=== PATIENT | female | born 1975 | race Caucasian/White ===

== ENCOUNTER 2018-02-19 07:58 | Day surgery (SDC) | payer OTHER ==
[2018-02-17 14:45] VITALS: BMI 29.9
[~2018-02-19 07:58] MED LIST: LACTATED RINGERS 1,000 ML IV SCH; LIDOCAINE 1% 20 ML VIAL (10MG/ML) FOR IV START INTRADERMA PRN
[2018-02-19 08:21] VITALS: RESP 16; TEMP 98.3
[2018-02-19] MEDS ORDERED: FAMOTIDINE 20 MG/2 ML VIAL IV ONE (08:42)
[2018-02-19] MEDS ORDERED: PROPOFOL 10 MG/ML 20 ML VIAL IV ONE (09:48)
--- NOTE | 2018-02-19 10:04 | P.PCN ---
Date of Procedure: 02/19/18 Procedure(s) Performed: BRIEF HISTORY: Patient is a 43-year-old, pleasant, white female, scheduled for an upper endoscopy as a part of evaluation of abdominal bloating, long-standing history of gastroesophageal reflux disease. She was diagnosed with questionable celiac disease about 15 years ago at [facility] and subsequently a few months later was told she does not have any celiac disease. Since then she has been on a regular diet. Lately her abdominal bloating has been progressively getting worse. She is scheduled for repeat upper endoscopy to evaluate this further.. PROCEDURE PERFORMED: Esophagogastroduodenoscopy with biopsy. PREOPERATIVE DIAGNOSIS: Abdominal bloating/GERD/questionable history of celiac disease diagnosed had mild gastritis and biopsies were done from this area. The 15 years. IV sedation per anesthesia. PROCEDURE: After informed consent was obtained, the patient was brought into the endoscopy unit. IV sedation was administered by Anesthesia under continuous monitoring. Initially the Olympus GIF-140 video endoscope was inserted into the mouth. Esophagus intubated without any difficulty. It was gradually advanced into the stomach and duodenum and carefully examined. The bulb and the second part of the duodenum appeared normal. Multiple biopsies were done from the duodenum to rule out celiac disease. The scope at this time was withdrawn to the stomach, adequately insufflated with air, and upon careful examination, mucosa of the antrum, body, cardia and the fundus appeared normal. The scope was then withdrawn into the esophagus. The GE junction was located at 39 cm from the incisors. The esophagus appeared normal. There were no erosions or ulcerations seen and the patient tolerated the procedure well. IMPRESSION: 1. Normal-appearing duodenum status post multiple biopsies to rule out celiac disease. 2. Mild antral gastritis. RECOMMENDATIONS: The findings of this examination were discussed with the patient as well as a family. She was advised to follow with the biopsy. She' ll be seen in office in 2-3 weeks.
[2018-02-19 10:34] VITALS: BP 126/85; PULSE 71
== END 2018-02-19 10:48 | disposition home or self-care (01) ==
LOC: ORWHC2ENDO 07:58
PROVIDERS: ATTEND Internal Medicine Gastroenterology
DX: K29.50 Unspecified chronic gastritis without bleeding (principal); K21.9 Gastro-esophageal reflux disease without esophagitis; I10 Essential (primary) hypertension; M79.7 Fibromyalgia; I73.00 Raynaud's syndrome without gangrene; Z88.1 Allergy status to other antibiotic agents; Z79.891 Long term (current) use of opiate analgesic; Z79.899 Other long term (current) drug therapy
CPT/HCPCS: 81025; 88305; 88342; 43239; J2704

== ENCOUNTER → 2019-08-29 | Outpatient (CLI) | payer BC ==
[2019-09-01 13:59] LABS: Cat Epith & Dander IgE <0.10 kU/L (<0.10); Cat Epith & Dander IgE Class CLASS 0; Cockroach IgE <0.10 kU/L (<0.10); Com. Pigweed IgE <0.10 kU/L (<0.10); Com. Pigweed IgE Class CLASS 0; Dermato. Pteronyssinus Class CLASS 0; Dermato. Pteronyssinus IgE <0.10 kU/L (<0.10); Dermato. farinae IgE <0.10 kU/L (<0.10); Dermato. farinae IgE Class CLASS 0; Dog Dander IgE <0.10 kU/L (<0.10); English Plantain IgE Class CLASS 0; Johnson Grass IgE Class CLASS 0; Lamb's Quarter IgE <0.10 kU/L (<0.10); Lamb's Quarter IgE Class CLASS 0; Timothy Grass IgE <0.10 kU/L (<0.10)
[2019-09-07 11:30] LABS: Corn IgG 5.3 mcg/mL (< 2.0); Cow's Milk IgG 33.3 mcg/mL (< 2.0); Peanut IgG 2.5 mcg/mL (< 2.0); Potato IgG <2.0 mcg/mL (< 2.0); Soybean IgG <2.0 mcg/mL (< 2.0); Tomato IgG 2.5 mcg/mL (< 2.0)
[2019-09-09 08:31] LABS: Alternaria alternata IgE QNS
[2019-09-09 08:32] LABS: Asperg. fumagatus IgE QNS; Birch(Com.Silvr) IgE QNS; Clad herbarum IgE QNS; Cottonwood IgE QNS; Egg White IgE QNS; Hazelnut IgE QNS; Kiwi IgE QNS
[2019-09-09 08:33] LABS: Aureo. pullulans IgE QNS; Epicoccum purpurascens IgE QNS; Maple (Box Elder) IgE QNS; Mucor racemosus IgE QNS; Oak IgE QNS; Peanut IgE QNS; Potato IgE QNS; Rhizopus nigricans IgE QNS; S.rostrata/Helminth IgE QNS; Soybean IgE QNS; Sycamore(Mpl.Lf) IgE QNS; Walnut Tree IgE QNS
== END | disposition home or self-care (01) ==
LOC: LABWHC1 17:23
PROVIDERS: ATTEND Otolaryngology
DX: J30.89 Other allergic rhinitis (principal); L50.0 Allergic urticaria; B44.89 Other forms of aspergillosis
CPT/HCPCS: 36415; 86001; 86003

== ENCOUNTER → 2020-02-21 | Outpatient (CLI) | payer BC | END | disposition home or self-care (01) | LOC: LABWHC1 15:06 | PROVIDERS: ATTEND Physical Medicine & Rehabilitation | DX: Z11.59 Encounter for screening for other viral diseases (principal) ==

== ENCOUNTER 2020-07-30 10:31 | Emergency (ER) | payer BC ==
[2020-07-30 10:36] VITALS: BP 151/88; PULSE 88; RESP 18; TEMP 98.9
--- NOTE | 2020-07-30 12:17 | XR ---
EXAMINATION TYPE: XR chest 2V DATE OF EXAM: 07/30/2020 COMPARISON: NONE HISTORY: Cough TECHNIQUE: Frontal and lateral views of the chest are obtained. FINDINGS: There is no focal air space opacity, pleural effusion, or pneumothorax seen. The cardiac silhouette size is within normal limits. The osseous structures are intact. IMPRESSION: No acute cardiopulmonary process.
--- NOTE | 2020-07-30 12:23 | ED ---
URI HPI - General Chief Complaint: Upper Respiratory Infection Stated Complaint: Headache/nausea/sore throat Time Seen by Provider: 07/30/20 11:15 Source: family Mode of arrival: ambulatory Limitations: no limitations - History of Present Illness Initial Comments: Patient is a 45-year-old female presenting to the emergency department with multiple complaints including a sore throat, cough, headache, nausea for the past few days. She states her symptoms started at nausea on and off for the last few days but she does have a history of lupus and states this is normal for her. She also had a few days of a headache and some dizzy spells which also states she states is normal for her. Then yesterday she started developing a cough with a sore throat. She denies being short of breath, no chest pains. She states she does feel a little bit of burning in her throat but no chest pain. She denies history of asthma or COPD. She is not a smoker. She states she had a low-grade temperature yesterday, none today. She denies any vomiting, diarrhea. She denies any urinary complaints. She is no further complaints at this time. Upon arrival to the ER her vital signs stable. - Related Data Home Medications Medication Instructions Recorded Confirmed Cyclobenzaprine [Flexeril] 5 mg PO HS 08/13/14 02/19/18 Esomeprazole Magnesium [NexIUM] 40 mg PO BID 08/13/14 02/19/18 Hydrocodone/Acetaminophen [[place] 1 tab PO Q6HR PRN 08/13/14 02/19/18 5-325] Hydroxychloroquine Sulfate 200 mg PO BID 08/13/14 02/19/18 [Plaquenil] Lisinopril [Prinivil] 5 mg PO DAILY 04/24/16 02/19/18 Ranitidine HCl [Zantac] 300 mg PO HS 04/24/16 02/19/18 Blisovi 02/19/18 Meloxicam [Mobic] 15 mg PO DAILY 02/19/18 02/19/18 Previous Rx's Medication Instructions Recorded Albuterol Inhaler [Ventolin Hfa 1 puff INHALATION RT-QID PRN #1 07/30/20 Inhaler] puff Allergies Allergy/AdvReac Type Severity Reaction Status Date / Time azithromycin [From Zithromax] Allergy Unknown Verified 07/30/20 10:36 gold Au 198 [gold Au-198] Allergy Rash/Hives Verified 07/30/20 10:36 Review of Systems ROS Statement: Those systems with pertinent positive or pertinent negative responses have been documented in the HPI. ROS Other: All systems not noted in ROS Statement are negative. Past Medical History Past Medical History: Fibromyalgia, Hypertension, Osteoarthritis (OA) Additional Past Medical History / Comment(s): kidney stones, lupus, IGA deficiency, RAYNAULDS,SLIGHT HEART MURMUR, , NEPHROTIC SYNDROME CHILD, HX UL CERS History of Any Multi-Drug Resistant Organisms: None Reported Past Surgical History: Tonsillectomy Additional Past Surgical History / Comment(s): lasix eye surgery,, CONE BX OF CERVIX, WISDOM TEETH SURGERY, EPIDURAL INJECTIONS Past Anesthesia/Blood Transfusion Reactions: No Reported Reaction Past Psychological History: No Psychological Hx Reported Smoking Status: Never smoker Past Alcohol Use History: Occasional Past Drug Use History: None Reported - Past Family History Mother Family Medical History: Cancer Additional Family Medical History / Comment(s): BREAST CANCER Father Family Medical History: Cancer Additional Family Medical History / Comment(s): SKIN CANCER General Exam - General Exam Comments Initial Comments: GENERAL: Patient is well-developed and well-nourished. Patient is nontoxic and in no acute distress. HEAD: Atraumatic, normocephalic. EYES: Pupils equal round and reactive to light, extraocular movements intact, sclera anicteric, conjunctiva are normal. Eyelids were unremarkable. ENT: TMs normal, nares patent, oropharynx clear without exudates. Moist mucous membranes. NECK: Normal range of motion, supple without lymphadenopathy or JVD. LUNGS: Unlabored respirations. Breath sounds clear to auscultation bilaterally and equal. No wheezes rales or rhonchi. HEART: Regular rate and rhythm without murmurs, rubs or gallops. ABDOMEN: Soft, nontender, normoactive bowel sounds. No guarding, no rebound. No masses appreciated. : Deferred MUSCULOSKELETAL: Normal extremities with adequate strength and normal range of motion, no pitting or edema. No clubbing or cyanosis. NEUROLOGICAL: Patient is alert and oriented x 3. Motor and sensory are also intact. Cranial nerves II through XII grossly intact. Symmetrical smile. Normal speech, normal gait. PSYCH: Normal mood, normal affect. SKIN: Warm, Dry, normal turgor, no rashes or lesions noted. Limitations: no limitations Course Vital Signs 07/30/20 10:33 Temperature 98.9 F Pulse Rate 88 Respiratory 18 Rate Blood Pressure 151/88 O2 Sat by Pulse 99 Oximetry Medical Decision Making - Medical Decision Making Patient is a 45-year-old female here with multiple complaints including intermittent nausea, headache, sore throat, cough that started mostly yesterday. Her vitals are stable here. Her chest x-ray shows no acute process. Influenza is negative, Covid test is positive. I discussed these findings with the patient. I will send her home with an albuterol inhaler to use for occasional shortness of breath, cough. She is stable for discharge. Return parameters were discussed with the patient she verbalized understanding. She needs to self quaratine for 10 days. Work note given. Case discussed with Dr. Drummond. - Lab Data Lab Results 07/30/20 07/30/20 Range/Units 11:22 11:36 Coronavirus (PCR) Detected A (Not Detectd) Influenza Type A RNA Not Detected (Not Detectd) Influenza Type B (PCR) Not Detected (Not Detectd) Disposition Clinical Impression: COVID-19 virus infection, Viral infection Disposition: HOME SELF-CARE Condition: Stable Instructions (If sedation given, give patient instructions): Upper Respiratory Infection (ED) Additional Instructions: Please return to the Emergency Department if symptoms worsen or any other concerns. Your Covid test is positive today. Chest x-ray is normal. Recommended to self quarantine for 10 days at the start of your symptoms. Follow-up with PCP. Prescriptions: Albuterol Inhaler [Ventolin Hfa Inhaler] 1 puff INHALATION RT-QID PRN #1 puff PRN Reason: Cough Is patient prescribed a controlled substance at d/c from ED?: No Referrals: Aleks Stiles MD [Primary Care Provider] - 1-2 days
== END 2020-07-30 12:57 | disposition home or self-care (01) ==
LOC: EC 10:31
DX: U07.1 COVID-19 (principal); I10 Essential (primary) hypertension; M79.7 Fibromyalgia; M19.90 Unspecified osteoarthritis, unspecified site; Z79.3 Long term (current) use of hormonal contraceptives; Z79.899 Other long term (current) drug therapy; Z79.1 Long term (current) use of non-steroidal anti-inflammatories (NSAID); Z88.1 Allergy status to other antibiotic agents; Z91.048 Other nonmedicinal substance allergy status
CPT/HCPCS: 71046; 87502; 87635; 99283

== ENCOUNTER → 2021-04-01 | Outpatient (CLI) | payer BC ==
[2021-04-01 07:45] VITALS: BP 151/96; PULSE 82; RESP 18; TEMP 98.4
--- NOTE | 2021-04-01 08:15 | P.PAINCN ---
History of Present Illness - Reason for Consult Consult date: 04/01/21 - History of Present Illness This is 46 years old female with a chronic history of severe back pain and mid back pain and severe low back pain, the patient did" lumbar degenerative disc disease lumbar radiculopathy, and lumbar spondylosis with lumbar facet arthropathy, facet degenerative disc disease and thoracic spondylosis with facet arthropathy ,patient was treated previously, the transforaminal epidural steroid injection which improved her radicular pain to the lower extremity, and also she had diagnostic medial branch block lumbar area 1, was done by Dr. Dr. Botello and she is scheduled to have the second diagnostic medial branch block, lumbar area, patient was referred to [facility] for evaluation guarding her upper and mid back pain, patient done physical therapy in the past and she has done chiropractic, without any significant improvement, of her pain, she is done steroid therapy or Aleve without any significant improvement of her pain, also she is treated with NSAID (celebrex ), [place], Flexeril and she continued to have pain, he denies any motor or sensory deficit she denies any fever or night sweats, and she reported that the pain interferes with her quality of life and activity daily livings, he denies any change in the bowel movement or urination Past Medical History Past Medical History: Fibromyalgia, Hypertension, Osteoarthritis (OA) Additional Past Medical History / Comment(s): kidney stones, lupus, IGA deficiency, RAYNAULDS,SLIGHT HEART MURMUR, , NEPHROTIC SYNDROME CHILD, HX ULCERS, SJORGREN'S SYNDROME, BULGING DISCS History of Any Multi-Drug Resistant Organisms: None Reported Past Surgical History: Tonsillectomy Additional Past Surgical History / Comment(s): lasix eye surgery,, CONE BX OF CERVIX, WISDOM TEETH SURGERY, EPIDURAL INJECTIONS Past Anesthesia/Blood Transfusion Reactions: No Reported Reaction Smoking Status: Never smoker - Past Family History Mother Family Medical History: Cancer Additional Family Medical History / Comment(s): BREAST CANCER Father Family Medical History: Cancer Additional Family Medical History / Comment(s): SKIN CANCER Medications and Allergies Home Medications Medication Instructions Recorded Confirmed Type Cyclobenzaprine [Flexeril] 5 mg PO HS 08/13/14 04/01/21 History Esomeprazole Magnesium [NexIUM] 40 mg PO BID 08/13/14 04/01/21 History Hydrocodone/Acetaminophen [[place] 1 tab PO Q6HR PRN 08/13/14 04/01/21 History 5-325] Hydroxychloroquine Sulfate 200 mg PO BID 08/13/14 04/01/21 History [Plaquenil] Lisinopril [Prinivil] 5 mg PO DAILY 04/24/16 04/01/21 History [place] 1 tab PO DAILY 02/19/18 04/01/21 History Albuterol Inhaler [Ventolin Hfa 1 puff INHALATION RT-QID PRN #1 07/30/20 04/01/21 Rx Inhaler] puff Celecoxib [CeleBREX] 200 mg PO BID 03/27/21 04/01/21 History traZODone HCL 50 mg PO HS 03/27/21 04/01/21 History Allergies Allergy/AdvReac Type Severity Reaction Status Date / Time azithromycin [From Zithromax] Allergy Rash/Hives Verified 03/27/21 15:35 gold Au 198 [gold Au-198] Allergy Rash/Hives Verified 03/27/21 15:35 Physical Exam Vitals: Vital Signs Temp Pulse Resp BP Pulse Ox 04/01/21 07:40 98.4 F 82 18 151/96 96 Physical Examinations : -Constitutiona : Cooperative , not in acute distress . -HEENT : nech : supple , no Lymphadenopathy , normal thyroid size . : eyes : no ptosis , no icterus, no photophobia . - neurologic : Cranial nerve II to XII intact , no focal neurological deffecit . -psychatric : alert , oriented X 3 , appropriate affect , intact judgment and insight . -Lymphatic : no Lymphadenopathy . - musculoskeltal : Cervical Spine motor stregnth in the deltoid and biceps, normal right side , normal Left side motor stregnth biceps and the wrist extensors normal right side ,normal left side . motor stregnth in the triceps muscle . normal Right side , normal Left side deep tendon reflexes normal at the biceps , normal at Brachioradialis , normal at triceps. cervical facet loading test: Positive Bilaterally Thoracic spine = Positive facet loading test and his thoracic area T2 through T8 Flexion, extension and rotation of the torso associated with severe pain Lumber spine moter stegnth lower extremities ,thigh and legs 5/5 Right side , 5/5 Left side deep tendon reflexes : normal Knee Jerk , normal ankle Jerk lumber facet Loading Test =positive Right , positive Left Range of motion of the lumbar spine Flexion 30 degrees, extension 10 degrees strait leg raising test = positive at 45 degree Fabere test= positive Right , and positive LT . tenderness over the Sacroiliac joint on the Right , and Left sides Tenderness over the trochanteric bursa bilaterally Results Comments: MRI of the thoracic spine= multilevel degenerative disc disease and multilevel facet arthropathy Assessment and Plan Plan: Assessment and plan=1-Thoracic degenerative disc disease. 2-thoracic spondylosis with facet arthropathy. 3-lumbar spondylosis and lumbar facet arthropathy. 4-lumbar degenerative disc disease. Patient could benefit from thoracic epidural steroid injection at T5 6, she continued to have pain in the future we can consider diagnostic medial branch blocks thoracic area, also patient already in the process of getting diagnostic medial branch block lumbar area after she finished the second set of diagnostic medial branch blocks she will be scheduled [place] RFA of the medial branch lumbar area Time with Patient: Greater than 30 PQRS Measure Charge Sheet Measure #130: Documentation of Current Meds in Medical Chart: Patient's medications documented in chart Measure #226: Tobacco Use: Screen & Cessation Intervention: Pt not a tobacco user Measure #111: Pneumonia Vaccination: Pneumococcal vaccine administered or previously received Measure #47: Advance Care Plan: Advance care planning discussed & documented, pt chose/unable to give Measure #412: Opioid Treatment Agreement: No documentation of signed opioid treatment agreement Measure #408: Opioid Therapy Follow-up Evaluation: Patient had NO f/u eval minimum every 3 months during opioid therapy Measure #317: Preventitive Care & Scrn High Bld Press & F/U: Pre-hypertensive or hypertensive BP documented, pt will f/u with PCP Measure #128: Body Mass Index (BMI) Screening & Follow-up: BMI documented ABOVE normal parameters - f/u documented Measure #131: Pain Assessment & Follow-up: Pain positive & plan documented, Follow-up scheduled Measure #431: Unhealthy Alcohol Use Preventative Care & Scrn: Patient not identified as an unhealthy alcohol user PQRS Narrative: Smoking Status Never smoker Blood Pressure 151/96 Pain Intensity [Back] 6 Scale Used Numeric (1 - 10) Hx Alcohol Use (MH) Yes Home Medications: Ambulatory Orders Cyclobenzaprine [Flexeril] 5 mg PO HS 08/13/14 Esomeprazole Magnesium [NexIUM] 40 mg PO BID 08/13/14 Hydrocodone/Acetaminophen [[place] 5-325] 1 tab PO Q6HR PRN 08/13/14 Hydroxychloroquine Sulfate [Plaquenil] 200 mg PO BID 08/13/14 Lisinopril [Prinivil] 5 mg PO DAILY 04/24/16 [place] 1 tab PO DAILY 02/19/18 Albuterol Inhaler [Ventolin Hfa Inhaler] 1 puff INHALATION RT-QID PRN #1 puff 07/30/20 Celecoxib [CeleBREX] 200 mg PO BID 03/27/21 traZODone HCL 50 mg PO HS 03/27/21
== END ==
LOC: PNWHC3 07:23
PROVIDERS: ATTEND Specialist
DX: M51.34 Other intervertebral disc degeneration, thoracic region (principal); M47.814 Spondylosis without myelopathy or radiculopathy, thoracic region; M51.36 Other intervertebral disc degeneration, lumbar region; M47.816 Spondylosis without myelopathy or radiculopathy, lumbar region; I10 Essential (primary) hypertension; M19.90 Unspecified osteoarthritis, unspecified site; Z79.899 Other long term (current) drug therapy; Z88.1 Allergy status to other antibiotic agents; Z88.9 Allergy status to unspecified drugs, medicaments and biological substances
CPT/HCPCS: 99211

== ENCOUNTER 2021-04-09 12:08 | Day surgery (SDC) | payer BC ==
[2021-04-09 12:29] VITALS: TEMP 97.2
[2021-04-09] MEDS ORDERED: LACTATED RINGERS 1,000 ML IV ONE (12:35)
[2021-04-09] MEDS ORDERED: MIDAZOLAM 2 MG/2 ML VIAL ONE (12:55)
[2021-04-09] MEDS ORDERED: IOPAMIDOL M200 10 ML VIAL ONE (12:55)
[2021-04-09] MEDS ORDERED: DEXAMETHASONE SOD PHOSPHATE 10 MG/ML 1 ML VIAL ONE (12:55)
[2021-04-09] MEDS ORDERED: fentaNYL (PF) 50 MCG/ML 2 ML AMP ONE (12:55)
[2021-04-09] MEDS ORDERED: IV FLUID CONTINUATION 1,000 ML IV ONE ×2 (13:19)
--- NOTE | 2021-04-09 13:19 | P.PCN ---
Date of Procedure: 04/09/21 Description of Procedure: PREOPERATIVE DIAGNOSIS: 1- Thoracic Degenerative Disc Diseases POSTOPERATIVE DIAGNOSIS: 1-Thoracic Degenerative Disc Diseases PROCEDURE 1.Thoracic epidural steroid injection Left paramedian under fluoroscopic guidance at the T6-T7 level. 2. Thoracic epidurogram. ANESTHESIA: Local with 1% lidocaine 3 ml and IV sedation with Versed 2 mg ,and fentanyl 100Mcg EBL: Minimal PROCEDURE INDICATION: The patient with low back pain and radiculitis symptoms unresponsive to conservative treatment. Fluoroscopy was used to optimize visualization of the needle placement and to maximize safety. Patient has had multiple thoracic epidurals with excellent relief greater than 6 months. She's had them at varying levels between T5 and T8. Reviewing of her MRI shows most insult between T7 and T8. I discussed the risks and benefits of proceeding with an epidural steroid injection in the thoracic level. We discussed infection, epidural hematoma in detail. Patient has no risk factors however signs and symptoms of epidural hematoma were discussed which include but not limited to back pain lower extremity weakness which could be progressive as well as bowel and bladder incontinence. Patient wishes to proceed knowing these risks. PROCEDURE DESCRIPTION / TECHNIQUE: The patient was seen and identified in the preoperative area. Risks, benefits, complications including but not limited to infections ,bleeding ,allergic reaction to the medications ,nerve damage and not complete pain releife , and alternatives were discussed with the patient. The patient agreed to proceed with the procedure and signed the consent. IV was started, and vital signs were stable. Patient was taken to the OR and time out was completed. The patient was placed in the prone position on procedure table and a pillow was placed under the abdomen to reduce lumbar lordosis. The lumbosacral area was prepped and draped in the usual sterile fashion.ere closely monitored during the procedure. Conscious sedation was used during the procedure to decrease patients anxiety. Vital signs was monitered during the entire procedure. Using anterior-posterior fluoroscopy, the T7-T8 intralaminar space was identified and the skin over this site was marked and then infiltrated with 1% lidocaine subcutaneously. Subsequently, a 20-gauge Tuohy epidural needle was inserted with left paramedian approach until lamina was contacted. The touhy was then walked off lamina until entered the posterior component of the ligamentum flavum. It was then advanced toward the epidural space using the Loss of resistance technique and guided by AP and contralateral oblique fluoroscopy. The correct needle position in the epidural space was verified with the injection of 2 mL of the water soluble contrast dye Omnipaque 180 contrast and observing an excellent epidurogram with the epidural spread of the dye, after negative aspiration for blood and CSF and in the absence of paresthesias. Again after negative aspiration, a 6ml mixture containing 20mg/2ml of PF Dexamethasone, 4ml of preservative free Normal Saline was injected. A washout of epidurogram was seen. Needle was withdrawn intact, skin was cleansed, and bandages were applied. COMPLICATIONS: None DISPOSITION / PLANS: The patient was placed in a supine position and transferred to the recovery area in a stable condition for observation. There was no evidence of lower extremity motor or sensory deficit after the procedure. Vitaliy martines was discharged from the recovery room after meeting discharge criteria. Home discharge instructions were given to the patient by the staff. The patient was reexamined prior to discharge. The patient will schedule a follow up in the clinic in 2-4 weeks.
[2021-04-09] MEDS ORDERED: LACTATED RINGERS 1,000 ML IV SCH (13:30)
[2021-04-09 13:43] VITALS: BP 131/85; PULSE 81; RESP 16
--- NOTE | 2021-04-09 19:55 | FL ---
Fluoroscopy HISTORY: Pain 26 seconds fluoroscopy time supplied to the referring clinician. 2 intraoperative C-arm images docum ent the procedure. See dictated report from anesthesia.
== END 2021-04-09 13:50 | disposition home or self-care (01) ==
LOC: ORPAIN 12:08
PROVIDERS: ATTEND Anesthesiology
DX: M51.34 Other intervertebral disc degeneration, thoracic region (principal)
CPT/HCPCS: 62321; 81025; J2250; J1100; J3010; Q9966; 99152

== ENCOUNTER → 2021-05-15 | Outpatient (CLI) | payer BC ==
[2021-05-15 08:10] VITALS: BP 122/86; PULSE 80; RESP 18; TEMP 99
--- NOTE | 2021-05-15 08:19 | P.PAINPG ---
Subjective Progress Note Date: 05/15/21 This is 46 years old female with a chronic history of severe back pain and mid back pain and severe low back pain, the patient has lumbar degenerative disc disease lumbar radiculopathy, and lumbar spondylosis with lumbar facet arthropathy, facet degenerative disc disease and thoracic spondylosis with facet arthropathy. To recap in the past she has had transforaminal epidural steroid injections which have helped radicular pain or lower extremity, she has also had diagnostic medial branch blocks done once by Dr. Botello. She is scheduled to have a second medial branch block however she was referred to us due to thoracic pain. She is in physical therapy in [place] in the past without any improv ement, she is also taking a Medrol Dosepak and Aleve without any improvement. She also tried Mcdonough, flexeril, and celebrex but continued to have pain that interfered with her quality of life activities during the day. We performed a T6-T7 epidural steroid injection for her. She got 80% relief from this injection, yesterday she had her 2nd MBB at [facility] in her lower back and she is being referred back here for the RFA. She received 80% relief yesterday from the second medial branch block (she got the same relief from the first injection). In the future she would want an injection higher in the thoracic spine. Physical Examinations : -Constitutiona : Cooperative , not in acute distress . -HEENT : nech : supple , no Lymphadenopathy , normal thyroid size . : eyes : no ptosis , no icterus, no photophobia . - neurologic : Cranial nerve II to XII intact , no focal neurological deffecit . -psychatric : alert , oriented X 3 , appropriate affect , intact judgment and insight . -Lymphatic : no Lymphadenopathy . - musculoskeltal : Cervical Spine motor stregnth in the deltoid and biceps, normal right side , normal Left side motor stregnth biceps and the wrist extensors normal right side ,normal left side . motor stregnth in the triceps muscle . normal Right side , normal Left side deep tendon reflexes normal at the biceps , normal at Brachioradialis , normal at triceps. cervical facet loading test: Positive Bilaterally Thoracic spine = Positive facet loading test and his thoracic area T2 through T8 Flexion, extension and rotation of the torso associated with severe pain Lumber spine moter stegnth lower extremities ,thigh and legs 5/5 Right side , 5/5 Left side deep tendon reflexes : normal Knee Jerk , normal ankle Jerk lumber facet Loading Test =positive Right , positive Left Range of motion of the lumbar spine Flexion 30 degrees, extension 10 degrees strait leg raising test = positive at 45 degree Fabere test= positive Right , and positive LT . tenderness over the Sacroiliac joint on the Right , and Left sides Tenderness over the trochanteric bursa bilaterally Results Comments: MRI of the thoracic spine= multilevel degenerative disc disease and multilevel facet arthropathy Assessment and Plan Plan: Assessment and plan=1-Thoracic degenerative disc disease. 2-thoracic spondylosis with facet arthropathy. 3-lumbar spondylosis and lumbar facet arthropathy. 4-lumbar degenerative disc disease. Schedule LMBB L4-5 L5-S1 RFA, we will also do a T4-5 FREDDIE in the mean time as our RFA schedules are booked further out. I have spent 33 minutes on patient care today. The time was used to review the medical records including relevant urine studies and prescription history, review of the available imaging, evaluation and examination of the patient, coordination of care with the medical staff and if applicable referring physicians, as well as creation of the medical record. PQRS Measure Charge Sheet Measure #130: Documentation of Current Meds in Medical Chart: Patient's medications documented in chart Measure #226: Tobacco Use: Screen & Cessation Intervention: Pt not a tobacco user Measure #111: Pneumonia Vaccination: Pneumococcal vaccine administered or previously received Measure #47: Advance Care Plan: Advance care planning discussed & documented, pt chose/unable to give Measure #412: Opioid Treatment Agreement: No documentation of signed opioid tr eatment agreement Measure #408: Opioid Therapy Follow-up Evaluation: Patient had NO f/u eval minimum every 3 months during opioid therapy Measure #317: Preventitive Care & Scrn High Bld Press & F/U: Pre-hypertensive or hypertensive BP documented, pt will f/u with PCP Measure #128: Body Mass Index (BMI) Screening & Follow-up: BMI documented ABOVE normal parameters - f/u documented Measure #131: Pain Assessment & Follow-up: Pain positive & plan documented, Follow-up scheduled Measure #431: Unhealthy Alcohol Use Preventative Care & Scrn: Patient not identified as an unhealthy alcohol user PQRS Narrative: PQRS Measure Charge Sheet PQRS Narrative: Smoking Status Never smoker Pain Intensity [Back] 3 Scale Used Numeric (1 - 10) Hx Alcohol Use (MH) Yes Home Medications: Ambulatory Orders Cyclobenzaprine [Flexeril] 5 mg PO HS 08/13/14 Esomeprazole Magnesium [NexIUM] 40 mg PO BID 08/13/14 Hydrocodone/Acetaminophen [Mcdonough 5-325] 1 tab PO Q6HR PRN 08/13/14 Hydroxychloroquine Sulfate [Plaquenil] 200 mg PO BID 08/13/14 Lisinopril [Prinivil] 5 mg PO DAILY 04/24/16 Blisovi 1 tab PO DAILY 02/19/18 Albuterol Inhaler [Ventolin Hfa Inhaler] 1 puff INHALATION RT-QID PRN #1 puff 07/30/20 Celecoxib [CeleBREX] 200 mg PO BID 03/27/21 traZODone HCL 50 mg PO HS 03/27/21 amLODIPine [Norvasc] 2.5 mg PO DIRECTED 05/09/21 ondansetron HCL [Zofran] 8 mg PO DAILY PRN 05/09/21 Controlled Substance Measures - Controlled Substance Measures Is patient prescribed a controlled substance at discharge?: No
== END ==
LOC: PNWHC3 07:48
PROVIDERS: ATTEND Anesthesiology
DX: M51.34 Other intervertebral disc degeneration, thoracic region (principal); M47.814 Spondylosis without myelopathy or radiculopathy, thoracic region; M47.816 Spondylosis without myelopathy or radiculopathy, lumbar region; M51.36 Other intervertebral disc degeneration, lumbar region; Z88.1 Allergy status to other antibiotic agents; Z91.09 Other allergy status, other than to drugs and biological substances
CPT/HCPCS: 99211

== ENCOUNTER 2021-06-21 07:53 | Day surgery (SDC) | payer BC ==
[2021-06-19 16:07] VITALS: BMI 29.9
[2021-06-21] MEDS ORDERED: LACTATED RINGERS 1,000 ML IV SCH (08:05)
[2021-06-21 08:14] VITALS: RESP 16; TEMP 97.4
[2021-06-21] MEDS ORDERED: LIDOCAINE 1% (10MG/ML) FOR IV START INTRADERMA ONE (08:20)
[2021-06-21] MEDS ORDERED: fentaNYL (PF) 50 MCG/ML 2 ML AMP ONE (08:40)
[2021-06-21] MEDS ORDERED: TRIAMCINOLONE ACETONIDE 40 MG/ML 1 ML VIAL ONE (08:40)
[2021-06-21] MEDS ORDERED: MIDAZOLAM 2 MG/2 ML VIAL ONE (08:40)
[2021-06-21] MEDS ORDERED: ROPIVACAINE 5MG/ML 20ML VIAL ONE (08:40)
[2021-06-21] MEDS ORDERED: IV FLUID CONTINUATION 600 ML IV ONE (09:16)
--- NOTE | 2021-06-21 09:17 | P.PCN ---
Date of Procedure: 06/21/21 Procedure(s) Performed: *Live* [facility] [address], [place] [address] Procedure Note Patient Name: Myra Guaman Date of : 79 Patient Status: Surgical Day Care Attending Provider: Rashad Villalta Date: 06/21/21 09:12 Initialization Date: 06/21/21 09:12 Date of Procedure: 06/21/21 Procedure(s) Performed: PREOPERATIVE DIAGNOSIS: 1-Lumbar Spondylosis with Facet Arthropathy without myelopathy. POSTOPERATIVE DIAGNOSIS: 1- Lumbar Spondylosis with Facet Arthropathy without myelopathy. PROCEDURES : Bilaterl Radiofrequency thermocoagulation, L3 , L4 , and L5 medial branch, with fluoroscopic guidance (fluoroscopy images available in the radiology department) ( to denervate the facet joint at Bilateral L4-5 ,and L5-S1 levels ). ANESTHESIA: monitered anesthesia care,as per anesthesia Dept . EBL: Minimal PROCEDURE INDICATION: The patient with low back pain secondary to lumbar facet arthropathy who had more than 50% relief of her pain with previous diagnostic lumbar medial branch block with bupivacaine. PROCEDURE DESCRIPTION / TECHNIQUE: The patient was seen and identified in the preoperative area. Risks, benefits, complications, including but not limited to risk of infection ,bleeding , allergic reactions to the medications and no complete pain releife , and alternatives were discussed with the patient, the patient agreed to proceed with the procedure and signed the consent. IV was started. Vital signs remained stable throughout the procedure. Patient was taken to the OR and time out was completed. The patient was placed in the prone position on the procedure table. The lumber area was prepped and draped in the usual sterile fashion. . Vital signs were closely monitored during the procedure .IV sedation was used during the procedure to decrease patients anxiety. Using AP and then oblique fluoroscopy, the ``eye of the Grant dog corresponding to the connection between the superior and transverse articular processes of right L3, L4, and L5 were identified, marked, and localized with 1% lidocaine. Subsequently, a 18 [id number] radiofrequency cannula with a 10- mm active tip was advanced guided by fluoroscopy to each of the``eyes of the Grant dog at right L3, L4, and L5. Each site then underwent sensory testing at 50 Hz and 0 to 1 volt and motor testing at 2.5 Hz and 0 to 3 volt with local stimulation, but no radicular symptoms down the legs. Thereafter each sites underwent radiofrequency thermocoagulation at 80 degrees celsius for 90 seconds after injecting 0.5 ml of PF Ropivacaine 1ml, then after the thermocoagulation done , 1 ml of the block solution containing Kenalog 20 mg and 3 ml of Ropivacaine 0.5% was injected at the right L3 , L4 , and L5 , levels after negative aspiration of CSF and blood and with no paresthesias. Cannulas were retracted while injecting lidocaine 1% until the needle is out. The same procedure was repeated at the level of Left L3, L4, and L5 levels. At the end of the procedure, the skin was cleansed and bandages were applied. COMPLICATIONS: No acute complications. DISPOSITION / PLANS: The patient was placed in a supine position and transferred to the recovery area in a stable condition for observation and was discharged from the recovery room after meeting discharge criteria. Home discharge instructions given to the patient by the staff. The patient was reexamined prior to discharge. The patient will schedule a follow up in the clinic in 2-4 weeks.
--- NOTE | 2021-06-21 09:19 | FL ---
Fluoroscopy HISTORY: Pain 12 seconds fluoroscopy time supplied to the referring clinician. 6 intraoperative C-arm images docum ent the procedure. See dictated report from anesthesia.
[2021-06-21 09:42] VITALS: BP 121/82; PULSE 80
== END 2021-06-21 09:46 | disposition home or self-care (01) ==
LOC: ORPAIN 07:53
PROVIDERS: ATTEND Specialist
DX: M47.816 Spondylosis without myelopathy or radiculopathy, lumbar region (principal); I10 Essential (primary) hypertension; M32.9 Systemic lupus erythematosus, unspecified
CPT/HCPCS: 81025; 64635; 64636; J2250; J3301; J3010; J2795

== ENCOUNTER → 2021-07-24 | Outpatient (CLI) | payer BC ==
[2021-07-24 07:39] VITALS: BP 137/90; PULSE 78; RESP 18; TEMP 97.8
--- NOTE | 2021-07-24 15:38 | P.PN ---
Subjective Progress Note Date: 07/24/21 This is 46 years old female with a chronic history of severe back pain and mid back pain and severe low back pain, the patient has lumbar degenerative disc disease lumbar radiculopathy, and lumbar spondylosis with lumbar facet arthropathy, facet degenerative disc disease and thoracic spondylosis with facet arthropathy. She presented to clinic today for follow-up appointment after her June 21 bilateral lumbar RFA. She reports that she had about one week of 80% relief of her back pain. She states her back pain is worse in the morning at this time. She describes it as a sharp aching sensation over her vertebral body. She states her pain is aggravated with sitting and driving. Better with rest and medication interventions. She also sees a chiropractor for her low back pain. On her workdays she just takes extra strength Tylenol to help alleviate with her pain. She reported that on June 10 Dr. Botello did a left transforaminal lumbar epidural steroid injection at L5 she reports it is helped with her leg pain. She denies any bowel or bladder dysfunction, saddle anesthesia, or any other red flag symptoms. Objective - Exam Physical Examinations : -Constitutiona : Cooperative , not in acute distress . -HEENT : nech : supple , no Lymphadenopathy , normal thyroid size . : eyes : no ptosis , no icterus, no photophobia . - neurologic : Cranial nerve II to XII intact , no focal neurological deffecit . -psychatric : alert , oriented X 3 , appropriate affect , intact judgment and insight . -Lymphatic : no Lymphadenopathy . - musculoskeltal : . Lumber spine moter stegnth lower extremities ,thigh and legs 5/5 Right side , 5/5 Left side deep tendon reflexes : normal Knee Jerk , normal ankle Jerk lumber facet Loading Test =positive Right , positive Left Range of motion of the lumbar spine Flexion 30 degrees, extension 10 degrees strait leg raising test = negative Fabere test= negative Mild tenderness over the Sacroiliac joint on the Right , and Left sides Gaenslen test= negative . Seated flexion test= negative . Distraction test= positive negative Sacroiliac compression test= negative Pain to palpation bilaterally from the iliac crest to the vertebrae transverse process Assessment and Plan Assessment: Assessment and plan Assessment: 1-Thoracic degenerative disc disease. 2-thoracic spondylosis with facet arthropathy. 3-lumbar spondylosis and lumbar facet arthropathy. 4-lumbar degenerative disc disease. Plan: She may benefit from bilateral iliosacral ligament injections. - PQRS measures = - Patient's medications are documented in the chart. -Tobacco use is negative -Patient's has not received pneumococcal vaccine. -Advanced care planning discussed, patient not eligible. -Opiate contract not signed. -Pain positive and follow-up visit/procedure is scheduled. -Patient's blood pressure measured [137/90 ] , and documented in the record ,and patient will follow up with the primary care. -Patient was not identified as an unhealthy alcohol user Time with Patient: Less than 30
== END ==
LOC: PNWHC3 07:26
PROVIDERS: ATTEND Student in an Organized Health Care Education/Training Program
DX: M51.34 Other intervertebral disc degeneration, thoracic region (principal); M47.814 Spondylosis without myelopathy or radiculopathy, thoracic region; M51.36 Other intervertebral disc degeneration, lumbar region; M47.816 Spondylosis without myelopathy or radiculopathy, lumbar region; Z88.1 Allergy status to other antibiotic agents; Z88.9 Allergy status to unspecified drugs, medicaments and biological substances
CPT/HCPCS: 99211

== ENCOUNTER 2021-08-08 06:16 | Day surgery (SDC) | payer BC ==
[2021-08-08 06:48] VITALS: RESP 16; TEMP 97.9
[2021-08-08] MEDS ORDERED: LACTATED RINGERS 1,000 ML IV ONE (06:50)
[2021-08-08] MEDS ORDERED: LIDOCAINE 1% (10MG/ML) FOR IV START INTRADERMA ONE (06:50)
[2021-08-08] MEDS ORDERED: LACTATED RINGERS 1,000 ML IV SCH (07:02)
[2021-08-08] MEDS ORDERED: ROPIVACAINE 5MG/ML 20ML VIAL ONE (07:24)
[2021-08-08] MEDS ORDERED: .fentaNYL (PF) 50 MCG/ML AMP ONE (07:24)
[2021-08-08] MEDS ORDERED: MIDAZOLAM 2 MG/2 ML VIAL ONE (07:24)
[2021-08-08] MEDS ORDERED: methylPREDNISolone ACETATE 40 MG/ML 1 ML VIAL ONE (07:24)
[2021-08-08] MEDS ORDERED: IV FLUID CONTINUATION 1,000 ML IV ONE (07:42)
--- NOTE | 2021-08-08 07:52 | P.PCN ---
Date of Procedure: 08/08/21 Procedure(s) Performed: Procedure= bilateral iliolumbar ligament steroid injection under fluoroscopy guidance (fluoroscopy image stored on file in the radiology Department ) Preoperative diagnosis= 1-bilateral iliolumbar ligament and neuralgia 2-lumbar degenerative disc disease 3-lumbar facet arthropathy Postoperative diagnosis=Same as preop Diagnosis . Complication = none Condition= stable Anesthesia= moderate sedation with intravenous Versed 2 mg , and fentanyl 100 micrograms . Indication for the procedure= patient complaining of low back pain , examination was positive for severe tenderness over the iliolumbar ligament area bilaterally and patient diagnosed with bilateral iliolumbar ligaments neuralgia, for this reason , she was good candidate for sacroiliac joint steroid injection. Description of the procedure= procedure risk and benefits discussed with the patient, including but not limited, risk of infection and bleeding, and ALLERGIC reaction to the medication and not complete pain relief and patient agreed with the preceding patient taken to the operating room, placed in prone position or standard monitors applied to the patient then after induction of anesthesia back prepped with chlorhexidine 3 times , Then under strict sterile technique, first I did the right lumbar ligament, after local infiltration of the skin and subcu interstitial with ropivacaine 0.5% 2 mL, then 22-gauge Quincke Needle advanced slowly under fluoroscopy and placed in the middle of the distance between the transverse process of L5, and the sacral rosa, after needle placement confirmed under fluoroscopy and after negative aspiration for heme and CSF, lidocaine 0.5% 4 mL mixed with 40 mg of Depo-Medrol injected after negative aspiration, and then the exact same procedure was repeated for the left side and I did the left side iliolumbar ligament steroid injection
[2021-08-08 08:01] VITALS: BP 115/79; PULSE 84
--- NOTE | 2021-08-08 09:24 | FL ---
EXAMINATION TYPE: FL guided pain mgmt statistic DATE OF EXAM: 08/08/2021 HISTORY: Fluoroscopy time 4 seconds of fluoroscopy provided. IMPRESSION: 1. Fluoroscopy time.
== END 2021-08-08 08:14 | disposition home or self-care (01) ==
LOC: ORPAIN 06:16
PROVIDERS: ATTEND Specialist
DX: G58.8 Other specified mononeuropathies (principal); M51.36 Other intervertebral disc degeneration, lumbar region; M47.816 Spondylosis without myelopathy or radiculopathy, lumbar region; Z88.1 Allergy status to other antibiotic agents; Z91.048 Other nonmedicinal substance allergy status
CPT/HCPCS: 20550; 77002; 81025; J2250; J1030; J3010; J2795; 99152

== ENCOUNTER → 2021-09-04 | Outpatient (CLI) | payer BC ==
--- NOTE | 2021-09-04 08:11 | P.PAINPG ---
Subjective Progress Note Date: 09/04/21 Principal diagnosis: Lumbar back pain Mrs. Guaman is a 46-year-old pleasant female came to the [facility] pain clinic for postprocedure evaluation. Patient has ongoing pain for many years. Patient had lumbar radiofrequency ablation, and iliolumbar ligament injections. Patient had bilateral iliolumbar ligament injection on 08/08/2021 which helped her more than 50% pain relief still working. She is doing regular activities, stretching, Tylenol, and muscle relaxant as needed. As per patient she is very active at home. Patient describes pain is aching, throbbing, constant type of pain. Pain is radiating to up to back of the mid thigh area.. Patient rated pain levels are 4 out of 10 in severity. With the help of medications pain levels are 3-4 out of 10 in severity. Activities making pain worse. Medications, resting, intervention procedure, and exercise helping in relieving patient's pain. Patient pain some days better than others. Overall activities decreased secondary to pain. Because of the pain sometimes patient is feeling lack of sleep, interest, and energy. Denied any side effects with the medications. Denied any bowel or bladder problems at this time. She is not using any walking aids at this time. Patient denies any suicidal or homicidal ideations intent or plan. Patient denies any auditory or visual hallucinations. Patient denied any red flag symptoms related to pain. Objective - Exam General: Well-developed, well-nourished, no acute distress HEENT: Normocephalic, and atraumatic Neck: Supple, no neck swelling Psychiatric: Appropriate mood, and affect [employer]: No focal neurological deficits Musculoskeletal: Upper extremity: Normal strength, and range of motion. Sensation grossly intact Lower extremity: Normal strength, and decreased range of motion secondary to pain Lumbar spine: Paravertebral tenderness: positive Lumbar facet load test : positive Sacroiliac joint tenderness: Negative Multiple trigger points positive in lower lumbar, and midthoracic area. - Constitutional Constitutional Comment(s): 13 point review of Systems , and symptoms negative for chest pain, shortness of breath, change in vision, change in weakness, abdominal pain, diarrhea, extreme fatigue, malaise, fever, skin changes, suicidal/homicidal ideas, bowel incontinence or bladder incontinence. Assessment and Plan Assessment: Lumbar spondylosis without myelopathy Lumbar degenerative disc disease Myofascial pain syndrome Bilateral iliolumbar ligament syndrome Chronic pain syndrome Plan: #1 Diagnoses, prognosis, and multiple treatment options including but not limited to physical therapy, interventional therapy, adjunct medication therapy, narcotic medication, and surgical options were discussed with the patient. And all questions were answered to the patient's satisfaction. #2 treatment plan agreement : Patient was thoroughly discussed regarding the treatment options, alternatives, and importance of exercises as tolerated. Patient clearly understood. #3 Patient was counseled on importance of regular exercise. Including julio cesar chi, aerobic exercises as tolerated. Which helps for chronic pain, and overall well-being. Patient also counseled regarding importance of weight control rolling chronic pain, and overall other health issues. By altering diet habits, minimizing sugar intake, and processed foods helps in minimizing Inflammation. Also discussed with the patient regarding intermittent fasting. #4 investigations: MAPS- reviewed , urine drug test- not done #5 diagnostic tests: None #6 consultation : None # 7 interventional procedures: None #8 medications None from the pain clinic. # 9 TENS unit's, and percussion massage device #10 disposition: scheduled to follow up with pain clinic as needed in future Time with Patient: Less than 30 PQRS Measure Charge Sheet Measure #130: Documentation of Current Meds in Medical Chart: Patient's medications documented in chart Measure #226: Tobacco Use: Screen & Cessation Intervention: Pt not a tobacco user Measure #111: Pneumonia Vaccination: Pneumococcal vaccine NOT administered or previously given Measure #47: Advance Care Plan: Advance care planning discussed & documented, pt chose/unable to give Measure #412: Opioid Treatment Agreement: No documentation of signed opioid treatment agreement Measure #408: Opioid Therapy Follow-up Evaluation: Patient had NO f/u eval minimum every 3 months during opioid therapy Measure #317: Preventitive Care & Scrn High Bld Press & F/U: Pre-hypertensive or hypertensive BP documented, pt will f/u with PCP Measure #128: Body Mass Index (BMI) Screening & Follow-up: BMI documented within normal parameters Measure #131: Pain Assessment & Follow-up: Pain positive & plan documented Measure #431: Unhealthy Alcohol Use Preventative Care & Scrn: Patient not identified as an unhealthy alcohol user PQRS Narrative: Smoking Status Never smoker Pain Intensity [Lower Back] 3 Scale Used Numeric (1 - 10) Hx Alcohol Use (MH) Yes Home Medications: Ambulatory Orders Cyclobenzaprine [Flexeril] 5 mg PO HS 08/13/14 Esomeprazole Magnesium [NexIUM] 40 mg PO BID 08/13/14 Hydrocodone/Acetaminophen [[place] 5-325] 1 tab PO Q6HR PRN 08/13/14 Hydroxychloroquine Sulfate [Plaquenil] 200 mg PO BID 08/13/14 Lisinopril [Prinivil] 5 mg PO DAILY 04/24/16 Albuterol Inhaler [Ventolin Hfa Inhaler] 1 puff INHALATION RT-QID PRN #1 puff 07/30/20 Celecoxib [CeleBREX] 100 mg PO BID 03/27/21 traZODone HCL 50 mg PO HS 03/27/21 amLODIPine [Norvasc] 2.5 mg PO DIRECTED PRN 05/09/21 ondansetron HCL [Zofran] 8 mg PO DAILY PRN 05/09/21 Norethindrone-E.estradiol-Iron [Audrey 24 Fe 1 mg-20 Mcg Tablet] 1 tab PO DAILY 08/08/21 Controlled Substance Measures - Controlled Substance Measures Is patient prescribed a controlled substance at discharge?: No
[2021-09-04 08:13] VITALS: BP 157/82; PULSE 81; RESP 18
== END ==
LOC: PNWHC3 07:43
DX: M47.816 Spondylosis without myelopathy or radiculopathy, lumbar region (principal); M51.36 Other intervertebral disc degeneration, lumbar region; M79.18 Myalgia, other site; G89.4 Chronic pain syndrome; M24.29 Disorder of ligament, other specified site; Z88.1 Allergy status to other antibiotic agents; Z88.9 Allergy status to unspecified drugs, medicaments and biological substances
CPT/HCPCS: 99211

== ENCOUNTER → 2021-11-13 | Outpatient (CLI) | payer BC ==
[2021-11-13 13:06] VITALS: BP 145/96; PULSE 91; RESP 17; TEMP 98.2
--- NOTE | 2021-11-13 13:14 | P.PN ---
Subjective Progress Note Date: 11/13/21 Principal diagnosis: A 46 yr old female with a history of severe and chronic mid back pain secondary to 6 degenerative disc diseases and spondylosis with facet arthropathy presents today for evaluation. Patient states her pain is 3 out of 10 in intensity, burning, throbbing, sharp and pinching in character in the left aspect of her thoracic spine in the musculature towards the left shoulder. Pain is provoked by pain and one position for periods of 1 hour or more. Pain is a lleviated with medications, topicals, injections, heat, ice, chiropractic treatments every 2 weeks, massage therapy every 2 weeks, use of a cervical brace, repositioning and rest. Interventional pain procedures completed include bilateral ilial lumbar ligament and TESI T4-T5 Patient is currently on Tylenol extra strength and Allison when necessary Patient denies any side effects of the medication(s), denies excessive drowsiness or sleepiness, denies suicidal ideation and reports that the current pain medication is helping to control the pain and improve activities of daily living. Patient denies any motor or sensory deficits. Patient denies any fever or night sweats, denies any change in the bowel movements or urination. Physical Examination: -Constitutional: Cooperative. Not in acute distress . -HEENT: Neck is supple. No lymphadenopathy. No thyromegaly. Normal thyroid size. Eyes: No ptosis , no icterus, no photophobia. ENT: No auditory deficits. Normal oropharynx. No Thrush. - Respiratory: Chest clear to auscultations bilaterally. No wheezing. No rhonchi. - Cardiovascular: Regular rate and rhythm. S1 / S2 , no S3 , no S4. - Gastrointestinal: Abdomen soft no tenderness. Bowel sounds positive in all four quadrants. No organomegaly. - Genitourinary: Deferred. - Neurologic: Cranial nerve II to XII intact. No focal neurological deficits. - Psychatric: Alert & oriented x 3. Matching mood & appropriate affect. Judgment and insight intact. - Lymphatic: No Lymphadenopathy. - Musculoskeletal: Cervical spine: Muscle bulk/ tone/ strength in the bilateral upper extremities normal. Facet loading test cervical area positive. Thoracic spine: Thoracic facet loading over the left T4-T5 with tenderness to palpation over the accompanying paraspinal muscles without jump reflex Lumbar spine: Motor bulk/ tone/ strength lower extremities , thigh and legs : 5/5 Deep tendon reflexes : Normal Knee Jerk. Normal Ankle Jerk . Vertebral body tenderness to palpation over Lumbar Facet Loading Test positive Straight Leg Raise: positive at 30 degrees right side/ left side Gaenslen's Test positive Sacral spine : Severe tenderness over the Sacroiliac joint: right side / left side Range of motion: Flexion of the lumbar spine <60 degrees Range of motion: Extension of the lumbar spine <20 degrees Gaenslen's Test positive David test: positive right side / left side Imaging: MRI of the thoracic spine without contrast from 01/22/21 reviewed Assessment and plan: Chronic mid back pain secondary to 6 degenerative disc disease , spondylosis with facet arthropathy without myelopathy Recommendation of T FREDDIE T4-T5 May need a series of injections, up to 3 with a 6 month period, to obtain sufficient pain relief Eyes aspirin to her anticoagulant use. Denies history of diabetes. All patient questions answered MAPS reviewed and it was appropriate. I have spent 31 minutes on patient care today. Dr Villalta was available by phone for the evaluation of this patient. The time was used to review the medical records including relevant urine studies and Prescription history (MAPs), review of the available imaging, evaluation and examination of the patient, coordination of care with the medical staff and if applicable referring physicians, as well as creation of the medical record Objective - Vital Signs Vital signs: Vital Signs Temp 98.2 F 11/13/21 12:58 Pulse 91 11/13/21 12:58 Resp 17 11/13/21 12:58 BP 145/96 11/13/21 12:58 Pulse Ox 97 11/13/21 12:58 Intake & Output 11/12/21 11/13/21 11/13/21 18:59 06:59 18:59 Weight 82.554 kg PQRS Measure Charge Sheet Mode of Arrival: Ambulatory - Pain Location Neck Non-Pharmacological Interventions: Chiropractic Treatment, Heat, Ice, Massage, Position/Reposition Pharmacological Interventions: Epidural, PRN Medication, Topical Medication PQRS Narrative: Smoking Status Never smoker Blood Pressure 145/96 Pain Intensity [Lower Back] 3 Pain Intensity [Neck] 3 Scale Used Numeric (1 - 10) Hx Alcohol Use (MH) Yes Home Medications: Ambulatory Orders Cyclobenzaprine [Flexeril] 5 mg PO HS 08/13/14 Esomeprazole Magnesium [NexIUM] 40 mg PO BID 08/13/14 Hydrocodone/Acetaminophen [[place] 5-325] 1 tab PO Q6HR PRN 08/13/14 Hydroxychloroquine Sulfate [Plaquenil] 200 mg PO BID 08/13/14 Lisinopril [Prinivil] 5 mg PO DAILY 04/24/16 Albuterol Inhaler [Ventolin Hfa Inhaler] 1 puff INHALATION RT-QID PRN #1 puff 07/30/20 Celecoxib [CeleBREX] 100 mg PO BID 03/27/21 traZODone HCL 50 mg PO HS 03/27/21 amLODIPine [Norvasc] 2.5 mg PO DIRECTED PRN 05/09/21 ondansetron HCL [Zofran] 8 mg PO DAILY PRN 05/09/21 Norethindrone-E.estradiol-Iron [Audrey 24 Fe 1 mg-20 Mcg Tablet] 1 tab PO DAILY 08/08/21
== END ==
LOC: PNWHC3 12:33
PROVIDERS: ATTEND Physician Assistant Medical
DX: M51.34 Other intervertebral disc degeneration, thoracic region (principal); M47.814 Spondylosis without myelopathy or radiculopathy, thoracic region; G89.29 Other chronic pain; Z88.1 Allergy status to other antibiotic agents; Z88.9 Allergy status to unspecified drugs, medicaments and biological substances
CPT/HCPCS: 99211

== ENCOUNTER 2021-12-12 07:22 | Day surgery (SDC) | payer BC ==
[2021-12-10 08:53] VITALS: BMI 29.9
[~2021-12-12 07:22] MED LIST changes: -LACTATED RINGERS 1,000 ML IV SCH; +LIDOCAINE 1% (10MG/ML) FOR IV START INTRADERMA PRN; -LIDOCAINE 1% 20 ML VIAL (10MG/ML) FOR IV START INTRADERMA PRN
[2021-12-12 08:02] VITALS: TEMP 97.8
[2021-12-12] MEDS: LACTATED RINGERS 1,000 ML IV SCH ×2 (08:07→08:09)
[2021-12-12] MEDS ORDERED: methylPREDNISolone ACETATE 40 MG/ML 1 ML VIAL ONE (08:10)
[2021-12-12] MEDS ORDERED: IOPAMIDOL M200 10 ML VIAL ONE (08:10)
[2021-12-12] MEDS ORDERED: fentaNYL (PF) 50 MCG/ML 2 ML AMP ONE (08:10)
[2021-12-12] MEDS ORDERED: MIDAZOLAM 2 MG/2 ML VIAL ONE (08:10)
--- NOTE | 2021-12-12 08:25 | P.PCN ---
Date of Procedure: 12/12/21 Procedure(s) Performed: PREOPERATIVE DIAGNOSIS: 1- Thoracic Degenerative Disc Diseases 2- Thoracic spondylosis with Facet arthropathy without myelopathy POSTOPERATIVE DIAGNOSIS: Same as preop diagnosis. PROCEDURE 1. Thoracic epidural steroid injection under fluoroscopic guidance at the T4-5 level. (Fluoroscopy imaging was available in radiology department) 2. Thoracic epidurogram. ANESTHESIA: Local with 1% lidocaine 3 ml and , moderate sedation with intravenous Versed 3 mg ,and fentanyle 150 Mcg EBL: Minimal PROCEDURE INDICATION: The patient with low back pain and radiculitis symptoms unresponsive to conservative treatment. Fluoroscopy was used to optimize visualization of the needle placement and to maximize safety. PROCEDURE DESCRIPTION / TECHNIQUE: The patient was seen and identified in the preoperative area. Risks, benefits, complications including but not limited to infections ,bleeding ,allergic reaction to the medications ,nerve damage and not complete pain releife , and alternatives were discussed with the patient. The patient agreed to proceed with the procedure and signed the consent. IV was started, and vital signs were stable. Patient was taken to the OR and time out was completed. The patient was placed in the prone position on procedure table . The Thoracic area was prepped and draped in the usual sterile fashion.ere closely monitored during the procedure. Conscious sedation was used during the procedure to decrease patients anxiety. Vital signs was monitered during the entire procedure. Using anterior-posterior fluoroscopy, the T4-5 interlaminar space was identified and the skin over this site was marked and then infiltrated with 1% lidocaine subcutaneously. Subsequently, a 20-gauge Tuohy epidural needle was inserted and advanced toward the epidural space using the ``Loss of resistance technique and guided by AP and lateral fluoroscopy. The correct needle position in the epidural space was verified with the injection of 2 mL of the water soluble contrast dye Isovue 200 contrast and observing an excellent epidurogram with the epidural spread of the dye, after negative aspiration for blood and CSF and in the absence of paresthesias. Again after negative aspiration, a 6 ml mixture containing 80 mg of Depo-medrol , and 2 ml of preservative free Normal Saline, and 2 ml of preservative free lidocaine 1% solution was injected and a washout of epidurogram was seen. Needle was withdrawn intact, skin was cleansed, and bandages were applied. COMPLICATIONS: None DISPOSITION / PLANS: The patient was placed in a supine position and transferred to the recovery area in a stable condition for observation. There was no evidence of lower extremity motor or sensory deficit after the procedure. Patient was discharged from the recovery room after meeting discharge criteria. Home discharge instructions were given to the patient by the staff. The patient was reexamined prior to discharge. The patient will schedule a follow up in the clinic in 2-4 weeks.
[2021-12-12] MEDS ORDERED: IV FLUID CONTINUATION 800 ML IV ONE (08:30)
[2021-12-12 08:36] VITALS: RESP 20
[2021-12-12 08:48] VITALS: BP 122/78; PULSE 92
--- NOTE | 2021-12-12 09:27 | FL ---
EXAMINATION TYPE: FL guided pain mgmt statistic DATE OF EXAM: 12/12/2021 HISTORY: Fluoroscopy time 4 seconds of fluoroscopy provided. IMPRESSION: 1. Fluoroscopy time.
== END 2021-12-12 09:00 | disposition home or self-care (01) ==
LOC: ORPAIN 07:22
PROVIDERS: ATTEND Specialist
DX: M54.6 Pain in thoracic spine (principal); M47.24 Other spondylosis with radiculopathy, thoracic region; Z88.1 Allergy status to other antibiotic agents; Z91.048 Other nonmedicinal substance allergy status
CPT/HCPCS: 81025; 62321; J2250; J1030; J3010; Q9966; 99152

== ENCOUNTER → 2022-01-02 | Outpatient (CLI) | payer BC ==
[2022-01-02 08:13] VITALS: BP 124/78; PULSE 78; RESP 18; TEMP 98.2
--- NOTE | 2022-01-02 08:17 | P.PN ---
Subjective Progress Note Date: 01/02/22 Principal diagnosis: A 46 yr old female with a history of severe and chronic neck & mid back pain secondary to cervicothoracic degenerative disc diseases and spondylosis with facet arthropathy presents today for evaluation s/p TESI T4-T5 #1. Pt states she experienced approximately 75% pain relief s/p procedure, L >R sides. Pain level is currently at 4/10 in intensity, dull/ achy in the mid aspects of her thoracic spine with sharp/ shooting radiating pain towards the R paraspinal muscles. Pain is provoked by twisting. Pain is alleviated with medications, injections, topicals, ice, heat, chiropractic treatments ever 2 weeks, home based stretching regimen and rest. Interventional pain procedures completed include TESI T4-T5, Iliolumbar ligament injection, BL Lumbar RFA Patient is currently on [place] from Dr Botello Patient denies any side effects of the medication(s), denies excessive drowsiness or sleepiness, denies suicidal ideation and reports that the current pain medication is helping to control the pain and improve activities of daily living. Patient denies any motor or sensory deficits. Patient denies any fever or night sweats, denies any change in the bowel movements or urination. Physical Examination: -Constitutional: Cooperative. Not in acute distress . -HEENT: Neck is supple. No lymphadenopathy. No thyromegaly. Normal thyroid size. Eyes: No ptosis , no icterus, no photophobia. ENT: No auditory deficits. Normal oropharynx. No Thrush. - Respiratory: Chest clear to auscultations bilaterally. No wheezing. No rhonchi. - Cardiovascular: Regular rate and rhythm. S1 / S2 , no S3 , no S4. - Gastrointestinal: Abdomen soft no tenderness. Bowel sounds positive in all four quadrants. No organomegaly. - Genitourinary: Deferred. - Neurologic: Cranial nerve II to XII intact. No focal neurological deficits. - Psychatric: Alert & oriented x 3. Matching mood & appropriate affect. Judgment and insight intact. - Lymphatic: No Lymphadenopathy. - Musculoskeletal: Cervical spine: Muscle bulk/ tone/ strength in the bilateral upper extremities normal. Vertebral body tenderness to palpation over C4-C7 Facet loading test cervical area positive. Thoracic spine: Vertebral body tenderness to palpation over T4, T5 with accompanying R paraspinal muscle tenderness Lumbar spine: Motor bulk/ tone/ strength lower extremities , thigh and legs : 5/5 Deep tendon reflexes : Normal Knee Jerk. Normal Ankle Jerk . Vertebral body tenderness to palpation over Lumbar Facet Loading Test positive Straight Leg Raise: positive at 30 degrees right side/ left side Gaenslen's Test positive Sacral spine : Severe tenderness over the Sacroiliac joint: right side / left side Range of motion: Flexion of the lumbar spine <60 degrees Range of motion: Extension of the lumbar spine <20 degrees Gaenslen's Test positive David test: positive right side / left side Assessment and plan: Chronic low back pain secondary to lumbar degenerative disc disease , lumbar spondylosis with facet arthropathy without myelopathy Recommendation of right paramedian FREDDIE T4-T5. May need a series of injections, up to 3 with a 6 month period, for optimal pain relief. Risks, benefits of procedure discussed and patient verbalized understanding. Denies anticoagulants use. Denies medical history of diabetes. MRI cervical spine without contrast re: M46.42 All patient questions answered MAPS reviewed and it was appropriate. I have spent 31 minutes on patient care today. Dr Villalta was available by phone for the evaluation of this patient. The time was used to review the medical records including relevant urine studies and Prescription history (MAPs), review of the available imaging, evaluation and examination of the patient, coordination of care with the medical staff and if applicable referring physicians, as well as creation of the medical record Objective - Vital Signs Vital signs: Intake & Output 01/01/22 01/02/22 01/02/22 18:59 06:59 18:59 Weight 82.554 kg PQRS Measure Charge Sheet Mode of Arrival: Ambulatory - Pain Location Neck Non-Pharmacological Interventions: Chiropractic Treatment, Heat, Home Exercise, Ice, Massage, Stretching Pharmacological Interventions: Epidural, PRN Medication PQRS Narrative: Smoking Status Never smoker Blood Pressure 124/78 Pain Intensity [Neck] 4 Scale Used Numeric (1 - 10) Hx Alcohol Use (MH) Yes Home Medications: Ambulatory Orders Cyclobenzaprine [Flexeril] 5 mg PO HS 08/13/14 Esomeprazole Magnesium [NexIUM] 40 mg PO BID 08/13/14 Hydrocodone/Acetaminophen [[place] 5-325] 1 tab PO Q6HR PRN 08/13/14 Hydroxychloroquine Sulfate [Plaquenil] 200 mg PO BID 08/13/14 Lisinopril [Prinivil] 5 mg PO DAILY 04/24/16 Celecoxib [CeleBREX] 100 mg PO BID 03/27/21 traZODone HCL 50 mg PO HS 03/27/21 amLODIPine [Norvasc] 2.5 mg PO DIRECTED PRN 05/09/21 ondansetron HCL [Zofran] 8 mg PO DAILY PRN 05/09/21 Norethindrone-E.estradiol-Iron [Audrey 24 Fe 1 mg-20 Mcg Tablet] 1 tab PO DAILY 08/08/21
== END ==
LOC: PNWHC3 07:40
PROVIDERS: ATTEND Specialist
DX: M51.36 Other intervertebral disc degeneration, lumbar region (principal); M47.816 Spondylosis without myelopathy or radiculopathy, lumbar region; G89.29 Other chronic pain; Z88.1 Allergy status to other antibiotic agents; Z88.9 Allergy status to unspecified drugs, medicaments and biological substances
CPT/HCPCS: 99211

== ENCOUNTER → 2024-03-23 | Outpatient (CLI) | payer BC ==
--- NOTE | 2024-03-29 15:17 | MR ---
EXAMINATION TYPE: MR brain wo/w con DATE OF EXAM: 03/23/2024 COMPARISON: None HISTORY: Parosmia. TECHNIQUE: Multiplanar, multisequence images of the brain and brainstem is performed without and with IV contras t, utilizing 7 mL intravenous Gadavist . FINDINGS: Diffusion weighted images demonstrate no evidence of a recent infarct or other diffusion ab normality. There is no extra-axial fluid collection or significant white matter signal abnormality. The ventricular system and cisternal spaces are normal in size and appearance. The brain volume is age appropriate. The susceptibility weighted images do not reveal any evidence for microhemorrhage. Midline structures demonstrate normal morphology. The craniocervical junction appears within normal limits. Post contrast images demonstrate no abnormal enhancement. The dural venous sinuses appear pa tent. The visualized sinuses are clear and the globes are intact. IMPRESSION: No evidence of intracranial mass, acute/subacute infarct, or abnormal enhancement.
== END | disposition home or self-care (01) ==
LOC: RADMRIMAIN 13:04
PROVIDERS: ATTEND Otolaryngology
DX: R43.1 Parosmia (principal)
CPT/HCPCS: 70553; A9585